=== PATIENT | male | born 1935 | race Caucasian/White ===

== ENCOUNTER 2020-05-05 11:13 | Outpatient (RCR) | payer MEDICARE, OTHER, SELFPAY ==
[2020-05-05] MEDS: COVID-19 VACC, MRNA(PFIZER)/PF 30 MCG/0.3 ML SYRINGE IM (08:29)
[2020-05-26] MEDS: COVID-19 VACC, MRNA(PFIZER)/PF 30 MCG/0.3 ML SYRINGE IM (08:22)
== END 2020-05-05 23:59 ==
LOC: IMMUN 11:13
PROVIDERS: Referring Provider Family Medicine; Visit Provider Family Medicine
DX: Z23 Encounter for immunization (principal)
CPT/HCPCS: 0001A; 0002A

== ENCOUNTER 2022-02-08 10:15 | Observation (INO) | payer MEDICARE, OTHER, SELFPAY ==
--- NOTE | 2022-02-06 15:23 | CASEMGMT ---
RN CM Assessment: TC to pt for initial transition planning/care coordination assessment. Care providers, pharmacy, and demographics verified/updated. Admitting Dx: Lumbar 3 and 4 laminectomy decompression, discectomy PCP:Dank Specialists:Jared St, cardio and Vikas cardio Preferred Pharmacy: [facility] Insurance: MCR, [employer] Sr Supp Prescription Benefit: yes LNOK: Seema Joyner, Living Arrangements: Pt lives with in a single story house with no steps to enter. Pt reports he is I in ADL's and denies concerns at home. Transportation: Pt does not drive. Pt transports him to medical appts. DME/HHC/SNF: Pt has a cane but does not use. Pt denies hx of HHC or SNF stays. Pt states no concerns with going home at time of dc. Pt states no further concerns/needs. CM to follow. Advised pt to ask CM if any further question/concerns/needs arise, voices understanding. Pt Goal: Home Plan: Home
[2022-02-08] VITALS (16 sets, daily range): BP systolic 134–170; BP diastolic 57–87; PULSE 40–85; RESP 14–18; TEMP 36.1–36.8; O2SAT 16–100; BMI 24.5
[2022-02-08] MEDS: Lactated Ringers 1,000 ML 15 ML IV (09:27)
--- NOTE | 2022-02-08 10:13 | PCM.DC.SUM ---
Providers Primary Care Physician: Dr. Diego Weems DO Reason For Visit: LUMBAR 3 AND 4 LAMINECTOMY DECOMPRESSION, DISCECTO Diagnosis Discharge Diagnosis (1) Lumbar stenosis: Status: Acute Code(s): M48.061 - Spinal stenosis, lumbar region without neurogenic claudication Medications at Discharge Home Medications amlodipine 10 mg tablet 10 mg PO DAILY 01/30/22 bilberry fruit extract 160 mg capsule 1,000 mg PO BID 01/30/22 cholecalciferol (vitamin D3) 125 mcg (5,000 unit) tablet (Vitamin D3) 125 mcg PO DAILY 01/30/22 cyanocobalamin-liver extract tablet 1 tab PO DAILY 01/30/22 ferrous sulfate 325 mg (65 mg iron) capsule,extended release 65 mg PO DAILY 01/30/22 glucosamine sulf dipot chlr,msm,chond 550 mg-C 30 mg-bryan 1 mg capsule (Glucosamine Chondroitin) 2 cap PO DAILY 01/30/22 lisinopril 20 mg tablet 20 mg PO DAILY 01/30/22 metoprolol tartrate 25 mg tablet 25 mg PO DAILY 01/30/22 mexiletine 150 mg capsule 150 mg PO Q8H PVC'S 01/30/22 multivitamin 1 cap PO DAILY 01/30/22 sertraline 50 mg tablet (Zoloft) 50 mg PO DAILY 01/30/22 simvastatin 10 mg tablet 10 mg PO QHS 01/30/22 vit C 250 mg-vit E 90 mg-zinc 40 mg-copper 1 hs-xhpmbh-dntguh capsule (PreserVision AREDS-2) 1 tab PO BID 01/30/22 hydrocodone-acetaminophen 5-325mg 5mg-325mg 1 tab PO Q6H 7 days #28 tabs 02/08/22 Hospital Course Operations - (L3, L4 laminectomy decompression, L3-4 discectomy) Summary of Care Provided Minutes Spent on Discharge: 15 Hospital Course: The patient is an 86-year-old male who underwent L3, L4 laminectomy decompression and L3-4 discectomy on 02/08/2022. He was subsequently admitted. The hospitalist was consulted for medical management. The patient progressed well. His pain was well controlled and he was mobilizing well. No significant medical issues were reported. He was subsequently discharged home on 02/09/2022 to follow-up with Dr. St in 3 weeks. Physical Exam Const alert, oriented x3 and no apparent distress General Appearance: cooperative, comfortable and well kempt HEENT normocephalic and head/scalp atraumatic Eyes EOMs intact bilaterally and conjunctivae normal Neck full ROM General: normal visual inspection Chest inspection of chest normal and palpation of chest normal Resp normal respiratory effort and normal air movement Cardio regular rate and peripheral pulses 2+ throughout GI soft to palpation, non-tender and non-distended Back/Spine Back/Spine Narrative: Dressing clean dry and intact. Incision well approximated with interrupted sutures in place. No tenderness erythema drainage or fluctuance Cervical Spine: cervical ROM normal Thoracic Spine / Upper Back: normal to inspection Lumbar Spine / Lower Back: normal to inspection Extremity normal to inspection, full ROM, normal capillary refill, no clubbing, cyanosis or edema and no calf tenderness Skin no rashes or lesions noted General Skin Exam: no breakdown Neuro oriented x3, CN's II-XII intact bilaterally, moves all extremities, no focal motor deficits, no sensory deficits noted and deep tendon reflexes 2+ bilaterally Motor Exam: strength 5/5 throughout and muscle tone normal throughout Weight / BMI Weight Weight: 152 lb 5.431 oz Body Mass Index (BMI) 24.5 ABG / Lab / Microbiology Data Microbiology: Microbiology 01/31/22 12:15 Swab (Method) Nasal Screen MRSA/MSSA - Final D/C Instructions Discharge Diet: No restrictions Lifting Restricted to (Lbs): 5 Additional Activity Instructions: No repetitive bending twisting or lifting greater than 5 pounds. Call your doctor if your incision/area has: Continuous Slow Oozing, Sudden Increased Bleeding, Increased Pain/ Swelling, Increased Redness, Foul Smelling Discharge and Swelling at the incision site Call your doctor if you observe: Fever of 101 or Higher, Coldness, Increased Pain, Numbness or Tingling, Change in Color, Inability to urinate, Inability to have a bowel movement, Using more than 1 pad per hour, Shortness of breath, Dizziness, Fainting spells, Swelling in the ankles, Chest pain, Prolonged hiccupping, Increased palpitations (irregular heartbeat), Calf discomfort and Uncontrolled pain Cleanse incision/area with: Do not get Incision Wet and Keep Dressing Clean & Dry Additional Dressing/Incision Instructions: Change dressing daily with iodine gauze and tape. Bohannon dressing to shower Please Follow Up With: Armani St, When: 3 weeks Meaningful Use Info Meaningful Use Diagnoses (Choose all that apply): None applicable Discharge Plan Admission Attending Provider: Armani St Primary Care Provider: Diego Weems Instructions Additional Instructions / Restrictions: 1. During your procedure, you received sedation through your IV. Please follow these instructions for the next 24 hours: Do not drive a motor vehicle, do not drink any alcoholic beverages, and do not sign any legal documents or make personal or business decisions. A responsible adult should stay with you at least 6 hours after the procedure. 2. Keep your surgical site/incision clean and the dressing dry and intact. You may use an ice pack at the surgical site to reduce any swelling or discomfort. 3. Monitor the incision site for any signs or symptoms of infection. Watch for redness, excessive swelling or drainage, or continued pain at the incision site after 3 days. Contact your physician immediately for a fever, chills or a temperature of 101.5? F or greater. 4. Take your medication exactly as prescribed by your physician. Do not attempt to wean yourself off any of your medications even though your pain is improving. This process needs to be carefully monitored by your doctor. Take any antibiotics prescribed exactly as directed and until they are gone. 5. Avoid stretching, bending, pulling, twisting or any sudden movements. 6. No lifting greater than 5 pounds. . 7. Do not operate a motor vehicle, equipment or a power tool while taking pain medication 8. Do not have any manipulation done by a chiropractor or any other physician without first consulting with the surgeon 9. Please contact our office if you are even scheduled for a CT scan or an MRI. 10. Please call us if you have any questions, problems or concerns. Discharge Orders/Prescriptions Prescriptions: New hydrocodone-acetaminophen 5-325 mg tablet 1 tab PO Q6H 7 Days Qty: 28 0RF Continued lisinopril 20 mg Tablet 20 mg PO DAILY simvastatin 10 mg Tablet 10 mg PO QHS amlodipine 10 mg Tablet 10 mg PO DAILY mexiletine 150 mg Capsule 150 mg PO Q8H multivitamin Capsule 1 cap PO DAILY sertraline [Zoloft] 50 mg Tablet 50 mg PO DAILY ferrous sulfate 325 mg (65 mg iron) Capsule, Extended Release 65 mg PO DAILY bilberry fruit extract 160 mg Capsule 1,000 mg PO BID cyanocobalamin-liver extract Tablet 1 tab PO DAILY metoprolol tartrate 25 mg Tablet 25 mg PO DAILY cholecalciferol (vitamin D3) [Vitamin D3] 125 mcg (5,000 unit) Tablet 125 mcg PO DAILY PreserVision AREDS-2 250-90-40-1 mg Capsule 1 tab PO BID Glucosamine Chondroitin 550-30-1 mg Capsule 2 cap PO DAILY Discontinued aspirin [Aspir-81] 81 mg Tablet,Delayed Release (Dr/Ec) 81 mg PO DAILY Referrals / Follow Up: Diego Weems DO [Primary Care Provider] - Armani St DO [Med Staff - Active Staff] - Disposition Disposition (needs filled in before D/C Order can be placed): Home, Self Care
--- NOTE | 2022-02-08 10:13 | PCM.OPRPT ---
Problems Associated Problem List Diagnoses (1) Lumbar stenosis: Report of Operation Date of Procedure: 02/08/22 Pre-Operative Diagnosis: 1. Lumbar stenosis L3-4, L4-5 with spondylosis 2. Lumbar degenerative disc disease L3-4, L4-5 3. 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 Lumbar stenosis L3-4, L4-5 with spondylosis 2. Lumbar degenerative disc disease L3-4, L4-5 3. 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 L3 laminectomy decompression 2. L4 laminectomy decompression 3. Bilateral L3-4 laminotomy 4. L3-4 discectomy Description of Surgical Findings:: The patient is an 86-year-old male with intractable back and leg pain. Image studies confirm the above diagnosis. He has failed nonoperative treatment including medications physical therapy and injections. The patient opted for operative intervention understanding the risk to include but not limited to bleeding, infection, damage to nerves arteries and veins, possibility of spinal fluid leak, nerve palsy, continued pain, need for further surgery, deep vein thrombosis, pulmonary embolism, risk of stroke heart attack or . The patient was identified in the preoperative holding area. There he received preoperative IV antibiotics Ancef and was transferred to the operative suite. Once in the operative suite after general endotracheal anesthesia was established the patient was transferred to the Kinder operating table in the prone position. All bony prominences were padded accordingly. The lumbar spine was prepped and draped in a standard surgical fashion. Bear hugger's were not turned on until the drapes were placed and sealed with Ioban. A midline incision was made and taken to the level of the lumbodorsal fascia. The fascia was divided and subperiosteal dissection was taken down to the level of the bilateral L3-4 facet joints. A bone scalpel was used to make the cuts in the lamina of L3 and L4 bilaterally then a series of Kerrisons and rongeurs was used removing the spinous process and lamina at L3 and L4. At this point bilateral L3-4 laminotomies were performed. The nerve root and dura were identified and retracted medially and a large subligamentous disc herniation was identified and removed. The incision was thoroughly irrigated. Any loose fragments of disc were identified and removed. The incision was then closed with #1 Vicryl for the fascia, 2-0 Vicryl for subcutaneous and 2-0 nylon for skin. Sterile dressing was applied with 4 x 4's ABD and tape. The patient tolerated the procedure well. He was extubated and taken to the PACU without incident. Surgeon: Armani St Type of Anesthesia: General Estimated Blood Loss (mL): 25 cc Fluids Replaced: 1500 cc Complications None Admit VTE Documentation VTE Present on Admission: No
--- NOTE | 2022-02-08 10:13 | PCM.PN.ORT ---
Subjective Subjective The patient was seen and examined postoperatively in the PACU. He is resting comfortably. His pain is controlled. He denies any complaints including numbness tingling or weakness Objective Data Objective Data Vital Signs: Vital Signs Temp Pulse Resp BP Pulse Ox O2 Del Method 97.6 F L 50 L 18 170/74 H 99 Room Air 02/08/22 09:17 02/08/22 09:17 02/08/22 09:17 02/08/22 09:17 02/08/22 09:17 02/08/22 09:17 Oxygen Delivery Method Room Air Weight: 152 lb 5.431 oz Body Mass Index (BMI) 24.5 Lab / Micro Data Micro: Microbiology 01/31/22 12:15 Swab (Method) Nasal Screen MRSA/MSSA - Final Physical Exam Const alert, oriented x3 and no apparent distress General Appearance: cooperative, comfortable and well kempt HEENT normocephalic and head/scalp atraumatic Eyes EOMs intact bilaterally and conjunctivae normal Chest inspection of chest normal and palpation of chest normal Resp normal respiratory effort and normal air movement Cardio regular rate, regular rhythm and peripheral pulses 2+ throughout GI soft to palpation, non-tender and non-distended Back/Spine normal to inspection Back/Spine Narrative: Dressing clean dry and intact Cervical Spine: cervical ROM normal Thoracic Spine / Upper Back: normal to inspection Extremity normal to inspection, full ROM, normal capillary refill, no clubbing, cyanosis or edema and no calf tenderness Skin no rashes or lesions noted General Skin Exam: no breakdown Neuro oriented x3, CN's II-XII intact bilaterally, moves all extremities, no focal motor deficits, no sensory deficits noted and deep tendon reflexes 2+ bilaterally Motor Exam: strength 5/5 throughout and muscle tone normal throughout Assessment & Plan Assessment/Plan (1) Lumbar stenosis: PLAN: Okay to admit to floor See orders Discharge planning likely home tomorrow
[2022-02-08] MEDS: Cefazolin 2 GM in 0.9% Normal Saline 100 ML IV (10:36)
[2022-02-08] MEDS: THROMBIN (RECOMBINANT) 20,000 UNIT VIAL 20000 UNIT TOPICAL (11:01)
[2022-02-08] MEDS: Lactated Ringers 1,000 ML 100 ML IV ×2 (11:01→18:54)
[2022-02-08] MEDS: Bupivacaine 0.25% 30 ML Vial (11:48)
--- NOTE | 2022-02-08 12:30 | RAD_ITS ---
STUDY: X-RAY - LUMBAR SPINE REASON FOR EXAM: Male, 86 years old. L3-4 LAMINECTOMY DECOMPRESSION, DISCECTOMY TECHNIQUE: 1 view(s) of the lumbar spine were obtained. COMPARISON: None FINDINGS: The localization instrument is seen posterior to the L3-L4 spinous process. RAD/Spine 1 View Any Level IMPRESSION: The localization images seen posterior to the L3-L4 spinous process. Electronically Signed: Evans Byrd MD at 14:03 EST ,
[2022-02-08] MEDS: Acetaminophen 500 MG Tablet 1000 MG PO ×2 (16:27→21:20)
[2022-02-08] MEDS: Mexiletine 150 MG Capsule PO ×2 (16:27→21:20)
[2022-02-08] MEDS: Ensure Surgery 237 ML LIQUID PO (16:29)
--- NOTE | 2022-02-08 16:45 | PCM.PN.HOSP ---
Subjective Subjective Consult for postop medical management: 86-year-old male with past medical history of CAD, chronic systolic CHF, history of PVCs who was admitted for elective laminectomy. Patient underwent L3-L4 decompressive laminectomy, bilateral L3-4 laminotomy, L3-4 discectomy. Patient was seen in the immediate postop period. He denied any chest pain or dizziness or palpitations. He had ambulated earlier on down the halls with therapy. He denied any fever or chills. Objective Data Objective Data Vital Signs: Vital Signs Temp Pulse Resp BP Pulse Ox O2 Del Method O2 Flow Rate 98.2 F 73 14 169/72 H 93 Room Air 2 02/08/22 14:59 02/08/22 15:00 02/08/22 14:59 02/08/22 14:59 02/08/22 14:59 02/08/22 14:59 02/08/22 14:00 Oxygen Flow Rate (L/min) 2 Oxygen Delivery Method Room Air Weight: 69.1 kg Body Mass Index (BMI) 24.5 Intake & Output: Intake and Output for Last 24 Hours 02/06/22 02/07/22 02/08/22 23:59 23:59 23:59 Intake Total 2610 / 2610 Output Total 1075 / 1075 Balance 1535 / 1535 Lab / Micro Data Micro: Microbiology 01/31/22 12:15 Swab (Method) Nasal Screen MRSA/MSSA - Final Radiography Diagnostic Testing: Radiology Impression Spine X-Ray 02/08/22 12:30 IMPRESSION: The localization images seen posterior to the L3-L4 spinous process. Electronically Signed: Evans Byrd MD at 14:03 EST , Physical Exam Narrative Physical exam: General: Alert, Oriented x3, Cooperative, hard of hearing HEENT: Atraumatic Oral: Moist Mucosa Neck: Supple Lungs: Clear to auscultation Cardiovascular: HS I+II, regular, no murmurs Abdomen: Bowel Sounds Present, Soft, Non Tender, Zhu catheter in situ with yellowish urine Extremities: No edema Skin: No rashes, No breakdown Neurological: Grossly intact Psych/Mental Status: Appropriate Assessment & Plan Assessment/Plan (1) Lumbar stenosis: PLAN: Plan 1. POD#0, status post L3-L4 decompressive laminectomy, laminotomy, discectomy Patient's and is fairly controlled with scheduled Tylenol, as needed oxycodone, morphine as needed PT/OT to evaluate and treat Continue with orthopedic/back surgery recommendation 2. CAD status post stent to the circumflex (2020), history of PVCs Patient is off aspirin for surgery, will need resumed after surgery when okay per back surgery Continue on statins, beta-liseth, mexiletine 3. Hypertension, controlled, continue amlodipine, lisinopril 4. Iron deficiency anemia, continue on ferrous sulfate 5. Depression, continue on Zoloft 6. DVT PPx-SCDs Charges/Coding Visit Charges Office Visits / Consults: 10754 OP Consult L5
[2022-02-08] MEDS: Cefazolin 1 GM/50 ML BAG IV (18:48)
[2022-02-08] MEDS: oxyCODONE 5 MG Tablet PO (18:52)
[2022-02-08] MEDS: Multivitamin (Healthy Eyes) Capsule 1 CAP PO (21:20)
[2022-02-08] MEDS: Simvastatin 10 MG Tablet PO (21:20)
[2022-02-09 02:00] VITALS: BP 153/75; PULSE 73; RESP 16; TEMP 37.2; O2SAT 95
[2022-02-09] MEDS: Cefazolin 1 GM/50 ML BAG IV (02:53)
[2022-02-09] MEDS: Acetaminophen 500 MG Tablet 1000 MG PO (05:39)
[2022-02-09] MEDS: Mexiletine 150 MG Capsule PO (05:39)
[2022-02-09 06:00] VITALS: PULSE 74
[2022-02-09] MEDS: Lactated Ringers 1,000 ML 100 ML IV (06:50)
--- NOTE | 2022-02-09 07:49 | NURSING ---
Dr. Lucas called and spoke with this nurse. Aware that pt's pain is well controlled and joseph out this morning. Dr. Lucas okay with pt leaving today. Discharge order in place.
[2022-02-09 07:59] VITALS: PULSE 73
[2022-02-09 08:09] VITALS: BP 169/90; PULSE 74; RESP 16; TEMP 37.2; O2SAT 98
[2022-02-09 08:21] VITALS: PULSE 74
[2022-02-09] MEDS: Cholecalciferol (Vit D3) 125 MCG CAPSULE (5,000 UNITS) PO (08:21)
[2022-02-09] MEDS: Metoprolol Tartrate 25 MG Tablet PO (08:21)
[2022-02-09] MEDS: amLODIPine 10 MG Tablet PO (08:22)
[2022-02-09] MEDS: Sertraline 50 MG Tablet PO (08:22)
[2022-02-09] MEDS: Ferrous Sulfate 325 MG Tablet PO (08:22)
[2022-02-09] MEDS: Lisinopril 20 MG Tablet PO (08:22)
[2022-02-09] MEDS: Multivitamin (Healthy Eyes) Capsule 1 CAP PO (08:22)
[2022-02-09] MEDS: Cyanocobalamin 500 MCG Tablet PO (08:22)
[2022-02-09] MEDS: Multivitamins,Therapeutic Tablet 1 TABLET PO (08:22)
[2022-02-09] MEDS: Ensure Surgery 237 ML LIQUID PO (08:26)
[2022-02-09 08:36] VITALS: BP 169/90; PULSE 74; RESP 16; TEMP 37.2; O2SAT 98
--- NOTE | 2022-02-09 09:00 | NURSING ---
Sitting in chair using his I.S at this time.
--- NOTE | 2022-02-09 09:26 | CASEMGMT ---
Addendum entered by Nan Walker 02/09/22 09:50: Referral sent to [facility] for FWW via careport at this time. Original Note: CONNOR DIEZ in to pt room, pt ready for dc. Therapy notified CONNOR DIEZ that pt needs FWW. Pt provided with a verbal local in network list of DME companies, pt chose [facility].
--- NOTE | 2022-02-09 10:33 | NURSING ---
Pt up to bathroom and voided without difficulty. Also passed flatus.
== END 2022-02-09 12:19 | disposition home or self-care (01) ==
LOC: SDC 11:13 → MS3 11:13
PROVIDERS: Admitting Provider Orthopaedic Surgery; PCP Family Medicine; Referring Provider Orthopaedic Surgery; Visit Provider Orthopaedic Surgery
PROC: (CPT 63030; principal; 2022-02-08 11:00)
DX: M48.061 Spinal stenosis, lumbar region without neurogenic claudication (principal); I50.22 Chronic systolic (congestive) heart failure; I11.0 Hypertensive heart disease with heart failure; M47.816 Spondylosis without myelopathy or radiculopathy, lumbar region; M51.36 Other intervertebral disc degeneration, lumbar region; M51.26 Other intervertebral disc displacement, lumbar region; I25.10 Atherosclerotic heart disease of native coronary artery without angina pectoris; Z79.899 Other long term (current) drug therapy; F32.A Depression, unspecified; F41.9 Anxiety disorder, unspecified; E78.00 Pure hypercholesterolemia, unspecified; I49.3 Ventricular premature depolarization
CPT/HCPCS: 63047; 63048; 00630; 72020; 76000; 87081; 96361; 96365; 96366; 97162; 97530; 99218; 99251; 99252; J7120; G0378; G0463

== ENCOUNTER 2022-11-02 08:30 | Day surgery (SDC) | payer MEDICARE, OTHER, SELFPAY ==
[2022-11-02 08:57] VITALS: BP 128/72; PULSE 69; RESP 16; TEMP 36.4; O2SAT 100; BMI 24.5
[2022-11-02] MEDS: Lactated Ringers 1,000 ML 15 ML IV (09:19)
--- NOTE | 2022-11-02 09:37 | DCINST_ITS ---
Discharge Instructions Diet Discharge Diet: No restrictions Activity Discharge Activity: Return to Normal Activity and May Not Drive (while taking narcotic pain medications.) Follow Up Care Please Follow Up With: Ahsan Christine MD When: Call [phone] for an appointment Test Results: Test results from this visit will be discussed in further detail at your follow- up appointment, if applicable. Discharge Plan Admission Primary Reason for Your Visit: stone in the ureter Attending Provider: Ahsan Christine Primary Care Provider: Diego Weems Discharge Orders/Prescriptions Prescriptions: New ciprofloxacin HCl [Cipro] 500 mg tablet 500 mg PO BID Qty: 6 0RF phenazopyridine [Pyridium] 100 mg tablet 100 mg PO TID PRN (Reason: pain) Qty: 15 0RF Continued amlodipine 10 mg Tablet 5 mg PO DAILY mexiletine 150 mg Capsule 150 mg PO Q8H multivitamin Capsule 1 cap PO DAILY sertraline [Zoloft] 50 mg Tablet 50 mg PO DAILY cyanocobalamin-liver extract Tablet 1 tab PO DAILY metoprolol tartrate 25 mg Tablet 25 mg PO DAILY cholecalciferol (vitamin D3) [Vitamin D3] 125 mcg (5,000 unit) Tablet 50 mcg PO DAILY Entresto 24-26 mg tablet 1 tab PO Q12H Patient Comments: TAKE 1 TABLET BY MOUTH TWICE A DAY amiodarone 200 mg tablet 200 mg PO DAILY Patient Comments: TAKE 1 TABLET BY MOUTH EVERY DAY Eliquis 5 mg tablet 5 mg PO DAILY pravastatin 10 mg tablet 10 mg PO QHS Patient Comments: TAKE 1 TABLET BY MOUTH EVERY DAY furosemide 40 mg tablet 20 mg PO DAILY Patient Comments: TAKE 1 TABLET BY MOUTH EVERY DAY vitamin H01-xmsmw acid 1,000-400 mcg lozenge 1,000 olimpia sublingual DAILY folic acid 800 mcg tablet 800 mcg PO QHS albuterol sulfate 90 mcg/actuation HFA aerosol inhaler 1 inh INHALATION PRN Patient Comments: USE 1 TO 2 PUFFS EVERY 4 HOURS NEEDED FOR SHORTNESS OF BREATH Referrals / Follow Up: Diego Weems DO [Primary Care Provider] - Ahsan Christine MD [Med Staff - Active Staff] - Disposition Disposition (needs filled in before D/C Order can be placed): Home, Self Care
--- NOTE | 2022-11-02 09:37 | HP.PCM_ITS ---
HPI - General General Date of Service: 11/02/22 Chief Complaint: Left largely ureteral calculi HPI Narrative MARY GUNN, is a 87 M who presents for laser of a large stone in the distal left ureter plan to do balloon dilation ureteroscopy laser lithotripsy of stone and stent placement [facility] Medical History (Updated 10/25/22 @ 08:53 by Jeanne Alicea) Anxiety Arthritis Back pain Cardiology follow-up encounter Dietary restriction History of cardioversion History of CHF (congestive heart failure) History of echocardiogram History of edema History of irregular heartbeat History of pacemaker History of pain when walking History of renal disease History of stress test Hypertension Leg cramps Low iron Non-smoker Syncope Wears glasses Wears hearing aid Wears partial dentures Home Medications amlodipine 10 mg tablet 5 mg PO DAILY 01/30/22 [History Last Taken 11/02/22] cholecalciferol (vitamin D3) 125 mcg (5,000 unit) tablet (Vitamin D3) 50 mcg PO DAILY 01/30/22 [History Last Taken Unknown] cyanocobalamin-liver extract tablet 1 tab PO DAILY 01/30/22 [History Last Taken Unknown] metoprolol tartrate 25 mg tablet 25 mg PO DAILY 01/30/22 [History Last Taken 11/02/22] mexiletine 150 mg capsule 150 mg PO Q8H PVC'S 01/30/22 [History Last Taken 02/08/22 05:00] multivitamin 1 cap PO DAILY 01/30/22 [History Last Taken Unknown] sertraline 50 mg tablet (Zoloft) 50 mg PO DAILY 01/30/22 [History Last Taken Unknown] albuterol sulfate 90 mcg/actuation aerosol inhaler 1 inh inhalation PRN SOB 10/25/22 [History Last Taken Unknown] amiodarone 200 mg tablet 200 mg PO DAILY 10/25/22 [History Last Taken 11/02/22] apixaban 5 mg tablet (Eliquis) 5 mg PO DAILY 10/25/22 [History Last Taken 10/30/22] folic acid 800 mcg tablet 800 mcg PO QHS 10/25/22 [History Last Taken Unknown] furosemide 40 mg tablet 20 mg PO DAILY 10/25/22 [History Last Taken Unknown] pravastatin 10 mg tablet 10 mg PO QHS 10/25/22 [History Last Taken Unknown] sacubitril 24 mg-valsartan 26 mg tablet (Entresto) 1 tab PO Q12H 10/25/22 [History Last Taken Unknown] vitamin B12 1,000 mcg-folic acid 400 mcg sublingual lozenge 1,000 olimpia sublingual DAILY 10/25/22 [History Last Taken Unknown] ciprofloxacin HCl 500 mg tablet (Cipro) 500 mg PO BID #6 tabs 11/02/22 [Rx Last Taken Unknown] phenazopyridine 100 mg tablet (Pyridium) 100 mg PO TID PRN pain #15 tabs 11/02/22 [Rx Last Taken Unknown] Allergy/AdvReac Type Severity Reaction Status Date / Time atorvastatin [From Lipitor] AdvReac MUSCLE Verified 10/25/22 08:31 ACHES rosuvastatin [From Crestor] AdvReac MUSCLE Verified 10/25/22 08:31 ACHES tramadol AdvReac DIFFICULTY Verified 10/25/22 08:31 WITH URINATION Surgical History (Updated 10/25/22 @ 08:53 by Jeanne Alicea) History of cardiac catheterization History of carpal tunnel surgery of left wrist History of carpal tunnel surgery of right wrist History of coronary artery stent placement History of lumbar laminectomy Hx of colonoscopy Hx of left cataract extraction Hx of right cataract extraction Hx of total shoulder replacement Social History Smoking Status: Never smoker Vital Signs Vital Signs Vital Signs: 11/02/22 08:57 11/02/22 08:57 Temperature 97.5 F L Temperature Source Temporal Pulse Rate 69 Respiratory Rate 16 Respiratory Pattern Normal Blood Pressure 128/72 H Blood Pressure Mean 90 Blood Pressure Source Monitor Blood Pressure Position Sitting Blood Pressure Location Left Arm Pulse Ox 100 Oxygen Delivery Method Room Air Weight Weight: 69.3 kg Body Mass Index (BMI) 24.5
[2022-11-02] MEDS: Cefazolin 2 GM in 0.9% Normal Saline 100 ML IV (12:08)
--- NOTE | 2022-11-02 12:57 | PCM.OPRPT ---
Report of Operation Pre-Operative Diagnosis: Distal left ureteral calculi Post-Operative Diagnosis: The same Surgery/Procedure Performed:: Cystoscopy, balloon dilation of the left ureter, ureteroscopy laser lithotripsy of stone, basket of fragments, left stent placement. retrograde pyelogram Description of Surgical Findings:: This is a patient who presents to the hospital for treatment for an obstructing distal ureter calculi. I discussed with the patient how the surgery would be performed and we reviewed the risks and benefits of the surgery. The risk and benefits include the risk of failure to remove the stone completely and that the patient may need multiple procedures. We discussed the risk of an infection, the risk of bleeding. We discussed the very rare risk of serious complicated injury to the ureter. The patient understands that if the stone is not able to be removed safely that we may abort the procedure and place a stent. After full discussion and all questions address with the patient the consent form was signed the side was marked appropriately and the patient was taken back to the operating room for the procedure. The patient was taken back to the operating room. After induction of anesthesia by the anesthesiology team the patient was placed in dorsolithotomy position. The genitals were prepped and draped in usual sterile fashion. I went into the bladder with a 21 Pashto rigid cystourethroscope through the urethra. Upon entering the bladder I inspected the trigone the left and right ureteral orifice and the bladder itself. I then cannulated the ureteral orifice and advanced a 0.038 Glidewire up into the kidney. Then over the Glidewire I advanced a 5 Fr Ureteral catheter and performed a retrograde pyelogram with about 10cc of contrast, to delineate the anatomy and identify the stone location. The stone was in a large dilated distal left ureteral pocket he had a very tortuous ureter. Then a ureteral balloon dilator was advanced over the wire and the distal ureter was balloon dilated with a 12 Fr x 5cm balloon dilator. After 3 minutes of dilating the ureter the balloon was backloaded off the 0.038 glidewire then the safety wire was left in place. I then placed a second 0.038 Guidewire as a working wire and over the working 0.038 guidewire I went in with the olivia rigide 7.5fr ureteroscope. I was able to go inside with the 7.5Fr olivia rigid utereroscope and I pulled out the working guidewire and then through the 7.5 fr simirigid ureteroscope I engage the stone in the distal ureter with laser lithotripsy using a 270miron laser fiber with energy setting of 6 Hertz and 0.6 J until the stone was lasered into tiny little pieces, all the fragments were then basketed out of the ureter with a nitinol engage basket. A retrograde pyelogram was performed with 10cc of contrast and no extravasation of contrast or perforation was identified in the ureter there was some mild irritation of the ureter where the stone was located. I then backed out of the ureter left the wire in place and then over the 0.038 guidewire I placed a double coiled pigtail ureteral stent. The ureteral stent was advanced over the 0.038 guidewire under direct fluoroscopic guidance and direct cystoscopic visual guidance, once the stent was in good position I pulled the wire and the stent coiled in the kidney and bladder in good position. I then drained the patient's bladder and the cystoscope was removed and the patient was taken back to the recovery room in good position. The patient was given discharge instructions to call the office for instructions on when to come to the office to have the stent removed. Surgeon: Ahsan Christine Type of Anesthesia: General Drains: left stent Admit VTE Documentation VTE Present on Admission: No VTE Mechan Device Prophylaxis: SCD's VTE Pharm Prophylaxis ordered?: No
[2022-11-02 13:06] VITALS: BP 128/72; BP 159/85; PULSE 71; RESP 20; TEMP 36.2; O2SAT 99
[2022-11-02 13:15] VITALS: BP 120/66; BP 128/72; PULSE 70; RESP 18; O2SAT 96
[2022-11-02 13:29] VITALS: BP 126/86; BP 128/72; PULSE 72; RESP 18; TEMP 36.6; O2SAT 100
[2022-11-02 13:43] VITALS: BP 128/72
== END 2022-11-02 14:19 | disposition home or self-care (01) ==
LOC: SDC 08:32 → AC 08:33
PROVIDERS: PCP Family Medicine; Referring Provider Urology; Visit Provider Urology
PROC: 0TJ98ZZ Inspection of Ureter, Via Natural or Artificial Opening Endoscopic (ICD-10-PCS; CPT 52352; principal; 2022-11-02 11:50)
DX: N20.1 Calculus of ureter (principal); I11.0 Hypertensive heart disease with heart failure; I50.9 Heart failure, unspecified; F41.9 Anxiety disorder, unspecified; Z79.899 Other long term (current) drug therapy; Z79.01 Long term (current) use of anticoagulants; Z95.0 Presence of cardiac pacemaker; Z95.5 Presence of coronary angioplasty implant and graft
CPT/HCPCS: 52356; 00873; 76000; J7120; C1726; C1769; C2617; J2405

== ENCOUNTER 2023-02-15 14:27 | Outpatient (CLI) | payer MEDICARE, OTHER, SELFPAY ==
--- NOTE | 2023-02-15 14:53 | RAD_ITS ---
STUDY: X-RAY CHEST REASON FOR EXAM: Male, 87 years old. SOB/COUGH TECHNIQUE: COMPARISON: None. FINDINGS: The left-sided pacemaker with leads overlying the heart. The lungs are clear and expanded. There is no demonstrated pleural abnormality. Normal size heart. Normal mediastinum and derrick. Normal visualized pulmonary arteries. There is atherosclerotic calcification of the aortic arch with tortuosity. There are diffuse degenerative changes of the visualized thoracic spine. 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 There is degenerative change in the left shoulder joint. There is no demonstrated abnormality of the visualized soft tissue structures of the upper abdomen. RAD/Chest PA and Lateral IMPRESSION: No demonstrated acute cardiopulmonary process. Electronically Signed: Rita Gaines MD at 22:27 EST ,
[2023-02-15 15:28] LABS: Hematocrit 35.4 % (40-54); Hemoglobin 11.4 g/dL (13.0-16.5); Mean Corp Hgb Conc 32.2 g/dL (32-36); Mean Corpuscular Hgb 30.6 pg (27.0-32.0); Mean Corpuscular Volume 94.9 fL (80-94); Platelet Count 225 K/mm3 (150-450); RBC Distribution Width CV 14.3 % (11.6-14.6); RBC Distribution Width SD 49.5 fl (35.1-43.9); Red Blood Count 3.73 M/mm3 (4.6-6.2); White Blood Count 5.4 K/mm3 (4.4-11.0)
[2023-02-15 15:50] LABS: BNP,B-Type NATRIURETIC PEPTIDE 447.4 pg/mL (0-100)
[2023-02-15 15:58] LABS: T4 Free Direct 0.98 ng/dL (0.76-1.46); T4 Total, Thyroxin 11.2 ug/dL (4.5-12.1); Thyroid Stim Hormone (TSH) 3.35 uIU/mL (0.358-3.74)
== END 2023-02-15 23:59 | disposition home or self-care (01) ==
LOC: RAD 14:28
PROVIDERS: PCP Family Medicine; Referring Provider Internal Medicine Pulmonary Disease; Visit Provider Internal Medicine Pulmonary Disease
DX: R06.02 Shortness of breath (principal); R05.9 Cough, unspecified; R53.83 Other fatigue
CPT/HCPCS: 36415; 71046; 83880; 84436; 84439; 84443; 85027

== ENCOUNTER → 2024-05-11 | Outpatient (CLI) | payer MEDICARE, OTHER, SELFPAY ==
--- NOTE | 2024-05-11 09:07 | RAD_ITS ---
EXAM: XR Chest, 2 Views CLINICAL INDICATION: TECHNIQUE: Frontal and lateral views of the chest. COMPARISON: No relevant prior studies available. FINDINGS: LUNGS AND PLEURAL SPACES: Pulmonary venous congestion. No consolidation. No pneumothorax. HEART: Unremarkable. No cardiomegaly. MEDIASTINUM: Unremarkable. Normal mediastinal contour. BONES/JOINTS: Unremarkable. No acute fracture. TUBES, LINES AND DEVICES: Left-sided cardiac pacemaker. RAD/Chest PA and Lateral IMPRESSION: Pulmonary venous congestion. Reading Location[facility]
== END | disposition home or self-care (01) ==
PROVIDERS: PCP Family Medicine; Referring Provider Internal Medicine Pulmonary Disease; Visit Provider Internal Medicine Pulmonary Disease
DX: I27.20 Pulmonary hypertension, unspecified (principal)
CPT/HCPCS: 71046